=== PATIENT | male | born 1950 | race Caucasian/White ===

== ENCOUNTER 2020-07-20 09:25 | Outpatient (REF) | payer MEDICARE, SELFPAY ==
[2020-07-20 11:19] LABS: MANUAL DIFF FLAG NO
[2020-07-20 11:30] LABS: Basophils Percent Auto 0.7 % (0-2); Eosinophils Absolute Auto 0.3 X10*3/uL (0.0-0.4); Eosinophils Percent Auto 5.5 % (0-4); Hematocrit 38.9 % (42-52); Hemoglobin 12.1 g/dl (14.0-18.0); Imm Gran Abs Auto 0.01 X10*3/uL (0.00-0.03); Imm Gran Pct Auto 0.2 % (0.0-0.4); Lymphocytes Absolute Auto 1.5 X10*3/uL (1.2-4.9); Lymphocytes Percent Auto 26.3 % (20-40); Mean Corpuscular HGB Conc 31.1 g/dl (31.0-36.0); Mean Corpuscular Hemoglobin 29.1 pg (27.0-33.0); Mean Corpuscular Volume 93.5 fL (80-98); Mean Platelet Volume 10.8 fL (9.4-12.4); Monocytes Absolute Auto 0.7 X10*3/uL (0.1-1.2); Monocytes Percent Auto 11.9 % (2-11); Neutrophils Absolute Auto 3.3 X10*3/uL (2.0-8.3); Neutrophils Percent Auto 55.4 % (45-73); Platelet Count 243 X10*3/uL (160-400); Red Blood Count 4.16 X10*6/uL (4.60-5.80); Red Cell Distribution Width 12.7 % (11.0-16.0); White Blood Count 5.9 X10*3/uL (4.8-10.8)
[2020-07-20 11:47] LABS: Alanine Aminotransferase 12 U/L (0-40); Albumin Level 4.1 g/dL (3.5-5.0); Alkaline Phosphatase 85 U/L (39-117); Anion Gap 11 (12-20); Aspartate Amino Transferase 18 U/L (5-37); Bilirubin Total 0.7 mg/dL (0.0-1.0); Blood Urea Nitrogen 12 mg/dL (9-16); Calcium 8.9 mg/dL (8.4-10.2); Carbon Dioxide 27 mmol/L (22-29); Chloride 106 mmol/L (96-108); Cholesterol 184 mg/dL; Estimated Glomerular Filt Rate > 60; Glucose Fasting 90 mg/dL (60-99); HDL Cholesterol 41 mg/dL; LDL Cholesterol Calculated 128 mg/dl; Potassium 4.9 mmol/l (3.3-5.1); Sodium 139 mmol/L (135-145); Total Protein 6.9 g/dL (6.5-8.0); Triglycerides 77 mg/dL
[2020-07-20 12:11] LABS: Prostate Specific Antigen 0.45 ng/mL (<0.05-4.0)
== END 2020-07-20 09:26 | disposition home or self-care (01) ==
LOC: HO.MANLDS 09:25
PROVIDERS: PCP Physician Assistant; Visit Provider Physician Assistant
DX: Z13.6 Encounter for screening for cardiovascular disorders (principal); Z00.00 Encounter for general adult medical examination without abnormal findings
CPT/HCPCS: 36415; 80053; 80061; 84153; 85025

== ENCOUNTER 2022-02-16 11:08 | Outpatient (REF) | payer MEDICARE, SELFPAY ==
[2022-02-16 13:00] LABS: Estimated Average Glucose 117 mg/dL; Hemoglobin A1c % 5.7 %
[2022-02-16 13:11] LABS: Prostate Specific Antigen 0.59 ng/mL (<0.05-4.0)
[2022-02-16 14:28] LABS: Folate > 20.0 ng/mL (> or = 4.0); Vitamin B12 631 pg/mL (200-900)
== END 2022-02-16 11:09 | disposition home or self-care (01) ==
LOC: HO.MANLDS 11:08
PROVIDERS: Visit Provider Physician Assistant
DX: G62.89 Other specified polyneuropathies (principal); N40.0 Benign prostatic hyperplasia without lower urinary tract symptoms; Z12.5 Encounter for screening for malignant neoplasm of prostate
CPT/HCPCS: 36415; 82306; 82607; 82746; 83036; 84153

== ENCOUNTER 2022-04-30 07:52 | Outpatient (REF) | payer MEDICARE, SELFPAY ==
--- NOTE | ~2022-04-30 | US_ITS ---
EXAMINATION: US LOWER EXTREMITY VENOUS (REFLUX EXAM), BILATERAL CLINICAL INDICATION: Insufficiency, venous COMPARISON: None. TECHNIQUE: Color flow triplex imaging and compression Doppler was performed to evaluate both the deep and the superficial systems of the bilateral lower extremities. To evaluate the superficial system, the examination was performed in the upright position. Color-flow Doppler ultrasound and compression ultrasound were utilized. In addition, maneuvers were utilized to demonstrate reflux. FINDINGS: 1. RIGHT DEEP VENOUS DOPPLER ULTRASOUND: Common Femoral Vein: Compressible, normal respiratory variation and augmented flow. Femoral Vein: Compressible, normal color flow and augmentation. Popliteal Vein: Compressible, normal augmentation. Deep Reflux: There is no evidence of reflux in the deep system in either the common femoral vein or the popliteal vein. There is no evidence of a Morataya's cyst. 2. SUPERFICIAL VENOUS DOPPLER ULTRASOUND: GREAT SAPHENOUS VEIN: Saphenofemoral Junction: 0.4 cm; No evidence of reflux. Proximal Thigh: 0.5 cm; No evidence of reflux. Mid Thigh: 0.5 cm; No evidence of reflux. Above Knee: 0.4 cm; No evidence of reflux. At Knee: 0.4 cm; No evidence of reflux. Below Knee: 0.4 cm; No evidence of reflux. Mid Calf: 0.3 cm; 13796 ms Ankle: 0.3 cm; 2456 ms DUPLICATED GREAT SAPHENOUS VEIN: None SMALL SAPHENOUS VEIN: Proximal: 0.3 cm; No evidence of reflux. Distal: 0.2 cm; No evidence of reflux. VEIN OF GIACOMINI: None imaged. PERFORATORS: Multiple small perforators in the mid and proximal calf. VARICOSITIES: None imaged. 1. LEFT DEEP VENOUS DOPPLER ULTRASOUND: Common Femoral Vein: Compressible, normal respiratory variation and augmented flow. Femoral Vein: Compressible, normal color flow and augmentation. Popliteal Vein: Compressible, normal augmentation. Deep Reflux: There is no evidence of reflux in the deep system in either the common femoral vein or the popliteal vein. There is no evidence of a Morataya's cyst. 2. SUPERFICIAL VENOUS DOPPLER ULTRASOUND: GREAT SAPHENOUS VEIN: Saphenofemoral Junction: 0.7 cm; No evidence of reflux. Proximal Thigh: 0.4 cm; No evidence of reflux. Mid Thigh: 0.4 cm; No evidence of reflux. Above Knee: 0.3 cm; No evidence of reflux. At Knee: 0.3 cm; No evidence of reflux. Below Knee: 0.3 cm; No evidence of reflux. Mid Calf: 0.3 cm; No evidence of reflux. Ankle: 0.3 cm; No evidence of reflux. DUPLICATED GREAT SAPHENOUS VEIN: None SMALL SAPHENOUS VEIN: Proximal: 0.3 cm; No evidence of reflux. Distal: 0.1 cm; No evidence of reflux. VEIN OF GIACOMINI: None imaged. PERFORATORS: Multiple small mid thigh and calf perforators. VARICOSITIES: None imaged. US/US venous duplex LE BI IMPRESSION: 1. No DVT. 2. Venous reflux in the great saphenous vein at the right midcalf and ankle. 3. Multiple bilateral small calf and thigh perforating veins.
== END 2022-04-30 07:53 | disposition home or self-care (01) ==
LOC: HO.US 07:52
PROVIDERS: Visit Provider Physician Assistant
DX: I87.2 Venous insufficiency (chronic) (peripheral) (principal); R60.0 Localized edema
CPT/HCPCS: 93970

== ENCOUNTER 2022-06-19 10:25 | Outpatient (REF) | payer MEDICARE, SELFPAY ==
[2022-06-21 05:57] LABS: Lyme Blot 1.71 index
[2022-06-25 11:55] LABS: Lyme Abs Screen POSITIVE
[2022-06-27 19:17] LABS: 18 KD (IgG) Band REACTIVE; 23 KD (IgG) Band REACTIVE; 23 KD (IgM) Band REACTIVE; 28 KD (IgG) Band NON-REACTIVE; 30 KD (IgG) Band NON-REACTIVE; 39 KD (IgM) Band REACTIVE; 39KD (IgG) Band NON-REACTIVE; 41 KD (IgM) Band REACTIVE; 41KD (IgG) Band REACTIVE; 45 KD (IgG) Band NON-REACTIVE; 58 KD (IgG) Band NON-REACTIVE; 66 KD (IgG) Band NON-REACTIVE; 93 KD (IgG) Band NON-REACTIVE; Lyme IgG Blot Interp NEGATIVE (NEGATIVE); Lyme IgM Blot Interp POSITIVE (NEGATIVE)
== END 2022-06-19 10:26 | disposition home or self-care (01) ==
LOC: HO.MANLDS 10:25
PROVIDERS: Visit Provider Physician Assistant
DX: R89.4 Abnormal immunological findings in specimens from other organs, systems and tissues (principal)
CPT/HCPCS: 36415; 86617; 86618

== ENCOUNTER 2023-05-07 11:40 | Outpatient (REF) | payer MEDICARE, SELFPAY ==
[2023-05-07 13:12] LABS: MANUAL DIFF FLAG NO
[2023-05-07 13:36] LABS: Basophils Percent Auto 0.7 % (0-2); Eosinophils Absolute Auto 0.3 X10*3/uL (0.0-0.4); Eosinophils Percent Auto 5.5 % (0-4); Hematocrit 40.3 % (42.0-52.0); Hemoglobin 12.3 g/dl (14.0-18.0); Imm Gran Abs Auto 0.01 X10*3/uL (0.00-0.03); Imm Gran Pct Auto 0.2 % (0.0-0.4); Lymphocytes Absolute Auto 1.5 X10*3/uL (1.2-4.9); Lymphocytes Percent Auto 26.7 % (20-40); Mean Corpuscular HGB Conc 30.5 g/dl (31.0-36.0); Mean Corpuscular Volume 91.6 fL (80.0-98.0); Mean Platelet Volume 10.7 fL (9.4-12.4); Monocytes Absolute Auto 0.6 X10*3/uL (0.1-1.2); Monocytes Percent Auto 10.7 % (2-11); Neutrophils Absolute Auto 3.2 x10*3/uL (2.0-8.3); Neutrophils Percent Auto 56.2 % (45-73); Platelet Count 219 X10*3/uL (160-400); Red Cell Distribution Width 14.8 % (11.0-16.0); White Blood Count 5.6 X10*3/uL (4.8-10.8)
[2023-05-07 14:09] LABS: Alanine Aminotransferase 18 U/L (0-40); Alkaline Phosphatase 91 U/L (39-117); Anion Gap 9 (12-20); Aspartate Amino Transferase 23 U/L (5-37); Bilirubin Total 0.8 mg/dL (0.0-1.0); Blood Urea Nitrogen 10 mg/dL (9-16); Calcium 9.9 mg/dL (8.4-10.2); Carbon Dioxide 28 mmol/L (22-29); Chloride 108 mmol/L (96-108); Cholesterol 106 mg/dL (<200); Estimated Glomerular Filt Rate > 60; Glucose Random 86 mg/dL (60-115); HDL Cholesterol 37 mg/dL (>40); LDL Cholesterol Calculated 59 mg/dL (<100); Potassium 5.1 mmol/L (3.3-5.1); Sodium 140 mmol/L (135-145); Triglycerides 52 mg/dL (<150)
[2023-05-07 14:25] LABS: Prostate Specific Antigen 0.66 ng/mL (<0.05-4.0)
== END 2023-05-07 11:41 | disposition home or self-care (01) ==
LOC: HO.MANLDS 11:40
PROVIDERS: Visit Provider Physician Assistant
DX: Z00.00 Encounter for general adult medical examination without abnormal findings (principal); Z12.5 Encounter for screening for malignant neoplasm of prostate
CPT/HCPCS: 36415; 80053; 80061; 84153; 85025

== ENCOUNTER 2023-05-27 10:51 | Emergency (ER) | payer OTHER, MEDICARE, SELFPAY ==
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
[2023-05-27 11:17] VITALS: BP 145/120; PULSE 72; RESP 18; TEMP 36.7; O2SAT 100; BMI 32.5
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
[2023-05-27] MEDS: Acetaminophen 325 MG TABLET 975 MG PO (12:49)
[2023-05-27] MEDS: Lidocaine 4 % Patch ADH..PATCH 1 PATCH TRANSDERMA (12:52)
== END 2023-05-27 13:42 | disposition home or self-care (01) ==
PROVIDERS: Emergency Provider Student in an Organized Health Care Education/Training Program; PCP Internal Medicine
DX: S06.0X0A Concussion without loss of consciousness, initial encounter (principal); S13.4XXA Sprain of ligaments of cervical spine, initial encounter; R51.9 Headache, unspecified; M54.2 Cervicalgia; R07.89 Other chest pain; X58.XXXA Exposure to other specified factors, initial encounter; Y93.9 Activity, unspecified; Y92.9 Unspecified place or not applicable; Y99.9 Unspecified external cause status
CPT/HCPCS: 70450; 71045; 72125; 99283; 99284

== ENCOUNTER 2024-06-15 09:23 | Outpatient (REF) | payer OTHER, MEDICARE, SELFPAY ==
[2024-06-15 13:14] LABS: MANUAL DIFF FLAG NO
[2024-06-15 13:28] LABS: Basophils Percent Auto 0.7 % (0-2); Eosinophils Absolute Auto 0.3 X10*3/uL (0.0-0.4); Eosinophils Percent Auto 5.4 % (0-4); Hematocrit 36.7 % (42.0-52.0); Hemoglobin 11.5 g/dl (14.0-18.0); Imm Gran Abs Auto 0.02 X10*3/uL (0.00-0.03); Imm Gran Pct Auto 0.3 % (0.0-0.4); Lymphocytes Absolute Auto 1.1 X10*3/uL (1.2-4.9); Lymphocytes Percent Auto 18.2 % (20-40); Mean Corpuscular HGB Conc 31.3 g/dl (31.0-36.0); Mean Corpuscular Hemoglobin 28.8 pg (27.0-33.0); Mean Corpuscular Volume 91.8 fL (80.0-98.0); Mean Platelet Volume 10.8 fL (9.4-12.4); Monocytes Absolute Auto 0.8 X10*3/uL (0.1-1.2); Monocytes Percent Auto 12.6 % (2-11); Neutrophils Absolute Auto 3.8 x10*3/uL (2.0-8.3); Neutrophils Percent Auto 62.8 % (45-73); Platelet Count 222 X10*3/uL (160-400); Red Cell Distribution Width 15.2 % (11.0-16.0); White Blood Count 6.1 X10*3/uL (4.8-10.8)
[2024-06-15 14:02] LABS: Prostate Specific Antigen 0.83 ng/mL (<0.05-4.0)
[2024-06-15 14:08] LABS: Alanine Aminotransferase 27 U/L (0-40); Alkaline Phosphatase 81 U/L (39-117); Anion Gap 10 (12-20); Aspartate Amino Transferase 27 U/L (5-37); Bilirubin Total 0.7 mg/dL (0.0-1.0); Blood Urea Nitrogen 14 mg/dL (9-16); Calcium 9.9 mg/dL (8.4-10.2); Carbon Dioxide 27 mmol/L (22-29); Chloride 108 mmol/L (96-108); Estimated Glomerular Filt Rate > 60; Glucose Random 92 mg/dL (60-115); Potassium 4.7 mmol/L (3.3-5.1); Sodium 140 mmol/L (135-145); Total Protein 6.9 g/dL (6.5-8.0)
== END 2024-06-15 09:24 | disposition home or self-care (01) ==
LOC: HO.MANLDS 09:23
PROVIDERS: Visit Provider Internal Medicine
DX: Z12.5 Encounter for screening for malignant neoplasm of prostate (principal); Z00.00 Encounter for general adult medical examination without abnormal findings
CPT/HCPCS: 36415; 80053; 84153; 85025

== ENCOUNTER 2024-07-14 15:08 | Outpatient (REF) | payer OTHER, MEDICARE, SELFPAY ==
[2024-07-14 17:53] LABS: MANUAL DIFF FLAG NO
[2024-07-14 18:01] LABS: Basophils Percent Auto 0.6 % (0-2); Eosinophils Absolute Auto 0.3 X10*3/uL (0.0-0.4); Hemoglobin 10.4 g/dl (14.0-18.0); Imm Gran Abs Auto 0.02 X10*3/uL (0.00-0.03); Imm Gran Pct Auto 0.3 % (0.0-0.4); Lymphocytes Absolute Auto 1.4 X10*3/uL (1.2-4.9); Lymphocytes Percent Auto 22.3 % (20-40); Mean Corpuscular HGB Conc 31.5 g/dl (31.0-36.0); Mean Corpuscular Hemoglobin 28.9 pg (27.0-33.0); Mean Corpuscular Volume 91.7 fL (80.0-98.0); Mean Platelet Volume 11.2 fL (9.4-12.4); Monocytes Absolute Auto 0.7 X10*3/uL (0.1-1.2); Monocytes Percent Auto 11.1 % (2-11); Neutrophils Absolute Auto 3.9 x10*3/uL (2.0-8.3); Neutrophils Percent Auto 60.7 % (45-73); Platelet Count 204 X10*3/uL (160-400); Red Cell Distribution Width 14.7 % (11.0-16.0); White Blood Count 6.4 X10*3/uL (4.8-10.8)
[2024-07-14 18:15] LABS: Alanine Aminotransferase 15 U/L (0-40); Albumin Level 3.8 g/dL (3.5-5.0); Alkaline Phosphatase 75 U/L (39-117); Anion Gap 12 (12-20); Aspartate Amino Transferase 25 U/L (5-37); Bilirubin Total 0.6 mg/dL (0.0-1.0); Blood Urea Nitrogen 16 mg/dL (9-16); C Reactive Protein < 0.04 mg/dL (< or = 0.50); Calcium 9.8 mg/dL (8.4-10.2); Carbon Dioxide 23 mmol/L (22-29); Chloride 110 mmol/L (96-108); Estimated Glomerular Filt Rate 55; Glucose Random 94 mg/dL (60-115); Iron 44 mcg/dL (45-160); Magnesium 1.8 mg/dL (1.6-2.6); Percent Iron Saturation 13 % (15-50); Potassium 4.4 mmol/L (3.3-5.1); Sodium 141 mmol/L (135-145); Total Iron Binding Capacity 331 mcg/dL (228-428); Total Protein 6.4 g/dL (6.5-8.0); Unsaturated Iron Binding 287 ug/dL
[2024-07-14 18:58] LABS: Vitamin B12 886 pg/mL (200-900)
[2024-07-14 20:17] LABS: Erythrocyte Sedimentation Rate 16 MM/HR (0-15)
[2024-07-19 06:03] LABS: VITAMIN D (1,25 OH) D3 27 pg/mL; Vit D (1,25-Dihydroxy) Total 27 pg/mL (18-72); Vitamin D (1,25 OH) D2 <8 pg/mL
== END 2024-07-14 15:09 | disposition home or self-care (01) ==
LOC: HO.MANLDS 15:08
PROVIDERS: Visit Provider Physician Assistant
DX: R25.2 Cramp and spasm (principal)
CPT/HCPCS: 36415; 80053; 82607; 82652; 83540; 83735; 85025; 85652; 86140

== ENCOUNTER 2024-08-12 11:45 | Outpatient (REF) | payer OTHER, MEDICARE, SELFPAY ==
[2024-08-12 13:12] LABS: MANUAL DIFF FLAG NO
[2024-08-12 13:31] LABS: Basophils Percent Auto 0.8 % (0-2); Eosinophils Absolute Auto 0.3 X10*3/uL (0.0-0.4); Eosinophils Percent Auto 5.7 % (0-4); Hematocrit 38.3 % (42.0-52.0); Imm Gran Abs Auto 0.01 X10*3/uL (0.00-0.03); Imm Gran Pct Auto 0.2 % (0.0-0.4); Lymphocytes Absolute Auto 1.1 X10*3/uL (1.2-4.9); Lymphocytes Percent Auto 21.9 % (20-40); Mean Corpuscular HGB Conc 31.3 g/dl (31.0-36.0); Mean Corpuscular Hemoglobin 29.9 pg (27.0-33.0); Mean Corpuscular Volume 95.3 fL (80.0-98.0); Mean Platelet Volume 10.5 fL (9.4-12.4); Monocytes Absolute Auto 0.5 X10*3/uL (0.1-1.2); Monocytes Percent Auto 10.5 % (2-11); Neutrophils Absolute Auto 3.1 x10*3/uL (2.0-8.3); Neutrophils Percent Auto 60.9 % (45-73); Platelet Count 223 X10*3/uL (160-400); Red Blood Count 4.02 X10*6/uL (4.60-5.80); Red Cell Distribution Width 15.2 % (11.0-16.0); White Blood Count 5.1 X10*3/uL (4.8-10.8)
[2024-08-12 13:41] LABS: Estimated Average Glucose 103 mg/dL; Hemoglobin A1c % 5.2 % (<6.0); Total Hemoglobin (HGBA1C) 3096.8272 umol/L
[2024-08-12 13:47] LABS: Alanine Aminotransferase 18 U/L (0-40); Albumin Level 3.9 g/dL (3.5-5.0); Alkaline Phosphatase 80 U/L (39-117); Anion Gap 14 (12-20); Aspartate Amino Transferase 27 U/L (5-37); Bilirubin Total 1.1 mg/dL (0.0-1.0); Blood Urea Nitrogen 10 mg/dL (9-16); Calcium 9.3 mg/dL (8.4-10.2); Carbon Dioxide 23 mmol/L (22-29); Chloride 108 mmol/L (96-108); Cholesterol 91 mg/dL (<200); Estimated Glomerular Filt Rate 56; Glucose Random 98 mg/dL (60-115); HDL Cholesterol 29 mg/dL (>40); LDL Cholesterol Calculated 45 mg/dL (<100); Potassium 4.3 mmol/L (3.3-5.1); Sodium 141 mmol/L (135-145); Total Protein 6.5 g/dL (6.5-8.0); Triglycerides 85 mg/dL (<150)
[2024-08-12 13:54] LABS: Prostate Specific Antigen 0.59 ng/mL (<0.05-4.0)
== END 2024-08-12 11:46 | disposition home or self-care (01) ==
LOC: HO.MANLDS 11:45
PROVIDERS: Visit Provider Physician Assistant
DX: Z00.00 Encounter for general adult medical examination without abnormal findings (principal); Z12.5 Encounter for screening for malignant neoplasm of prostate; Z13.1 Encounter for screening for diabetes mellitus
CPT/HCPCS: 36415; 80053; 80061; 83036; 84153; 85025

== ENCOUNTER 2025-01-26 14:02 | Outpatient (REF) | payer OTHER, MEDICARE, SELFPAY ==
--- OUTSIDE RECORDS SUMMARY | 2025-01-26 15:13 | XMS_ITS | Data Portability ---
Author Organization [facility] Home Service Address [address] [place] [address] Care Team Providers Care Corporate Licensed Broker Name Role Phone CARMEN GARCIA Sales Recruiting Coordinator Assessment No assessment recorded. Plan of Treatment Reminders Order Date Submit Date Provider Last Modified By Organization Details Last Modified Time Details Appointments FOLLOW UP 15 2024 09:15A COLEMAN GOODWIN Not available Not available Not available MEDICARE ANNUAL WELLNESS 2024 09:00A COLEMAN GOODWIN Not available Not available Not available Lab CMP, serum or plasma 2024 025 [facility], [address] [place] [address], [id number], 11/10/2024 10:41:37 iron + TIBC + ferritin, serum 2024 025 [facility], [address] [place] [address], [id number], 11/10/2024 10:41:37 CBC w/ auto diff 2024 025 [facility], [address] [place] [address], [id number], 11/10/2024 10:41:37 iron + TIBC + ferritin, serum 2024 025 [facility], [address] [place] [address], [id number], 10/06/2024 11:45:43 CBC w/ auto diff 2024 025 [facility], [address] [place] [address], [id number], 10/06/2024 11:45:43 iron + TIBC + ferritin, serum 2023 024 [facility], [address] [place] [address], [id number], 10/01/2024 19:29:55 CBC w/ auto diff 2023 024 [facility], [address] [place] [address], [id number], 10/01/2024 16:36:39 magnesium , serum or plasma 2023 024 [facility], [address] [place] [address], [id number], 07/14/2024 15:17:15 CMP, serum or plasma 2023 024 [facility], [address] [place] [address], [id number], 07/14/2024 15:17:15 vitamin D, 25-hydrox y, total, serum 2023 024 [facility], [address] [place] [address], [id number], 07/20/2024 13:38:44 vitamin B12 + folate, serum or blood 2023 024 [facility], [address] [place] [address], [id number], 07/14/2024 15:17:15 CBC w/ auto diff 2023 024 [facility], [address] [place] [address], [id number], 07/14/2024 15:17:15 iron + TIBC + ferritin, serum 2023 024 [facility], [address] [place] [address], [id number], 11/06/2024 13:42:09 ESR (erythroc yte sedimenta tion rate), blood 2023 024 [facility], [address] [place] [address], [id number], 07/14/2024 15:17:15 C-reactiv e protein, quantitat mague, serum or plasma 2023 024 [facility], [address] [place] [address], [id number], 07/14/2024 15:17:15 PSA, serum or plasma 2023 024 [facility], [address] [place] [address], 71632, 06/15/2024 09:11:05 CBC w/ auto diff 2023 024 [facility], [address] [place] [address], [id number], 06/15/2024 09:24:06 CMP, serum or plasma 2023 024 [facility], [address] [place] [address], [id number], 06/16/2024 11:34:20 Referral physical therapist referral 2024 025 [facility], [address] [place] [address], [id number], 10/07/2024 08:09:15 Procedures None recorded. Surgeries None recorded. Imaging None recorded. Medication Orders ketoconaz ole 2 % topical cream 2024 025 [facility][id number], [address] [place], [address], 11/10/2024 10:40:13 Patient TargetsNo targets recorded. Patient InstructionsNo instructions recorded. Reason for Referral Physical Therapist Referral for Abnormal gait Referring Physician: Kanchan Chauhan, Internal Medicine, Encounter Date: 10/06/2024 Results Created Date Observation Date Name Description Value Unit Range Abnormal Flag Note LastModifiedBy Organization Detail LastModifiedTime Result Notes None recorded. Problems Name Problem SNOMED Code Status Onset Date Resolution Date Notes Provider Name and Address Organization Details Recorded Time Glaucoma 96365611 Active 2019 Not Available [facility] 13:48:53 M? ? ?ni? ? ?re's disease 74523894 Active 2019 Not Available [facility] 13:48:53 Adenomat ous polyp of colon 997799338 Active 2019 Not Available [facility] 13:48:53 Psoriasi s 1963705 Active 2019 Not Available [facility] 13:48:53 Osteoart hritis 420095752 Active 2019 Not Available [facility] 13:48:53 Varicoce le 90405104 Active 2019 Left testes in his 20's Not Available [facility] 13:48:53 Depressi ve disorder 24845712 Active 2019 Not Available [facility] 13:48:53 [facility] hyperten nara 08192336 Active 2019 Not Available [facility] 13:48:53 Hemorrho ids 52189145 Active 2019 Not Available [facility] 13:48:53 Chronic kidney disease 696941668 Completed 201908/01/2020 Stage 3 , onset 06/12/20 19 COLEMAN MONTES [address] [place], [address], [facility] 0 11:27:04 Disorder of prostate 12640000 Active 2019 Not Available [facility] 1 13:48:53 Mass of neck 683914513 Active 2019 Not Available [facility] 13:48:53 Venous insuffic iency of leg 013253071 Active 2021 COLEMAN MONTES [address] [place], [address], [facility] 2 10:54:09 Neuropat hy 980347518 Active 2021 COLEMAN MONTES [address] [place], [address], [facility] 2 10:56:15 Varicose veins of lower extremit y 16973366 Active 2021 COLEMAN MONTES [address] [place], [address], [facility] 2 10:59:54 Lumbar radiculo anna 145410172 Active 2021 COLEMAN MONTES [address] [place], [address], [facility] 2 11:01:11 Benign prostati c hyperpla romario 939389074 Active 2021 COLEMAN MONTES [address] [place], [address], [facility] 2 11:02:46 Edema of lower extremit y 093254331 Active 2021 COLEMAN MONTES [address] [place], [address], [facility] 2 17:09:28 Impacted cerumen of bilatera l ears 57049348656 79777 Active 2021 COLEMAN MONTES [address] [place], [address], [facility] 2 16:53:48 Hearing loss 62648309 Active 2021 COLEMAN MONTES [address] [place], [address], [facility] 2 14:21:39 Lyme detected by immunobl ot 730562359 Active 2021 COLEMAN MONTES [address] [place] [address], , [facility] 2 10:15:51 Abnormal gait 04697567 Active 2021 COLEMAN MONTES [address] [place] [address], [address], [facility] 2 10:26:01 Lyme disease 80754693 Active 2021 COLEMAN MONTES [address] [place] [address], , [facility] 2 12:51:03 Nocturia 083276992 Active 2022 COLEMAN MONTES [address] [place] [address], , [facility] 3 10:30:57 Torticol lis 04429177 Active 2022 COLEMAN MONTES [address] [place] [address], , [facility] 3 14:55:26 Pain of left hip joint 58380796720 9100 Active 2023 COLEMAN MONTES [address] [place] [address], , [facility] 4 10:44:27 Increase d frequenc y of urinatio n 663366570 Active 2023 COELMAN MONTES [address] [place] [address], , [facility] 4 10:45:32 Bilatera l hearing loss 76356076 Active 2023 COLEMAN MONTES [address] [place] [address], , [facility] 4 10:49:27 Polyuria 32921155 Active 2023 COLEMAN MONTES [address] [place], [address], [facility] 4 16:24:58 Carotid artery stenosis 54953478 Active 2023 COLEMAN MONTES [address] [place], [address], [facility] 4 09:17:06 Spasm 35663244 Active 2023 COLEMAN MONTES [address] [place], [address], [facility] 4 15:01:01 Iron deficien cy anemia 23598787 Active 2023 COLEMAN MONTES [address] [place], [address], [facility] 4 11:00:15 Onycholy sis due to fungal infectio n of nail 119259606 Active 2024 COLEMAN MONTES [address] [place], [address], [facility] 5 10:39:39 Problem Notes None recorded. Procedures Surgical History Date Name Laterality Status Provider Name and Address Organization Details Recorded Time 04/09/20 22 Cerumen Removal completed COLEMAN MONTES [address] [place], [address], [facility] 04/09/2022 16:53:36 03/08/20 16 Colonoscopy completed Princesselian Frye [facility] 03/30/2020 15:31:22 08/16/20 15 Cataract Surgery completed Princess Frye [facility] 03/30/2020 15:30:26 05/05/20 15 Carpal tunnel surgery completed Princesselian Frye [facility] 03/30/2020 15:31:50 04/01/20 15 Carpal tunnel surgery completed Princesselian Frye [facility] 03/30/2020 15:31:58 12/27/19 11 Colonoscopy completed [facility] 03/30/2020 15:32:19 10/04/19 10 Colonoscopy completed [facility] 03/30/2020 15:32:29 09/16/19 04 total replacement of hip completed [facility] 03/30/2020 15:42:23 Imaging Results None recorded. Procedure Notes None recorded. Medical Equipment None Reported. Allergies No known drug allergies Medications Name Sig Start Date Stop Date Status Note LastModified by Organization Details LastModified Time latanoprost 0.005 % eye drops INSTILL 1 DROP INTO BOTH EYES AT BEDTIME active Not Available Not Available No t Available atorvastati n 40 mg tablet TAKE 1 TABLET BY MOUTH EVERY DAY active Not Available Not Available No t Available carvedilol 25 mg tablet TAKE 1 TABLET BY MOUTH TWICE A DAY 06/19 completed Not Available Not Available Not Available magnesium 500 mg tablet Take 1 tablet every day by oral route. active Not Available Not Available No t Available venlafaxine ER 37.5 mg capsule,ext ended release 24 hr TAKE 1 CAPSULE EVERY DAY BY ORAL ROUTE IN THE MORNING WITH MEAL. active Not Available Not Available No t Available carvedilol 6.25 mg tablet TAKE 1 TABLET BY MOUTH TWICE A DAY WITH MEALS 12/05 completed Not Available Not Available Not Available prednisone 10 mg tablet PLEASE SEE ATTACHED FOR DETAILED DIRECTION S 04/10 completed Not Available Not Available Not Available venlafaxine ER 75 mg capsule,ext ended release 24 hr TAKE 1 CAPSULE EVERY DAY BY ORAL ROUTE IN THE MORNING FOR 90 DAYS, FOR ANXIETY DRVING & HEADACHE. active Not Available Not Available No t Available carvedilol 12.5 mg tablet TAKE 1 TABLET BY MOUTH TWICE A DAY WITH FOOD active Not Available Not Available No t Available diltiazem CD 240 mg capsule,ext ended release 24 hr 04/11 completed Not Available Not Available Not Available meloxicam 15 mg tablet TAKE 1 TABLET EVERY DAY BY ORAL ROUTE WITH MEALS FOR 30 DAYS. active Not Available Not Available No t Available isosorbide mononitrate ER 30 mg tablet,exte nded release 24 hr TAKE 1 TABLET BY MOUTH EVERY DAY active Not Available Not Available No t Available chlorthalid one 25 mg tablet 04/11 completed Not Available Not Available Not Available amlodipine 5 mg tablet Take 1 tablet every day by oral route. 12/09 completed Not Available Not Available Not Available tramadol 50 mg tablet TAKE 1 TABLET BY MOUTH EVERY 6 HOURS NEEDED FOR 7 DAYS 06/15 completed Not Available Not Available Not Available triamcinolo ne acetonide 0.1 % topical cream APPLY THIN COAT TO AFFECTED AREA TWICE A DAY active Not Available Not Available No t Available spironolact one 25 mg tablet 11/17 completed Not Available Not Available Not Available lorazepam 0.5 mg tablet TAKE 1 TABLET BY MOUTH TWICE A DAY NEEDED FOR 7 DAYS 04/10 completed Not Available Not Available Not Available tamsulosin 0.4 mg capsule TAKE 1 CAPSULE BY MOUTH EVERY DAY 12/05 completed Not Available Not Available Not Available baclofen 10 mg tablet TAKE 1 TABLET BY MOUTH THREE TIMES A DAY FOR 14 DAYS 04/10 completed Not Available Not Available Not Available amlodipine 10 mg tablet Take 1 tablet every day by oral route for 90 days. 10/06 completed Not Available Not Available Not Available lisinopril 10 mg tablet TAKE 1 TABLET BY MOUTH EVERY DAY active Not Available Not Available No t Available oxybutynin chloride ER 5 mg tablet,exte nded release 24 hr TAKE 1 TABLET BY MOUTH EVERY DAY active Not Available Not Available No t Available hydrochloro thiazide 25 mg tablet TAKE 1 TABLET BY MOUTH EVERY DAY 06/19 completed Not Available Not Available Not Available mupirocin 2 % topical ointment APPLY A SMALL AMOUNT TO THE AFFECTED AREA BY TOPICAL ROUTE 3 TIMES PER DAY 04/09 completed Not Available Not Available Not Available ketoconazol e 2 % topical cream APPLY TO AFFECTED AREA EVERY DAY active Not Available Not Available No t Available lisinopril 40 mg tablet TAKE 1 TABLET BY MOUTH EVERY DAY active Not Available Not Available No t Available doxycycline hyclate 100 mg tablet TAKE 1 TABLET BY MOUTH TWICE A DAY 12/05 completed Not Available Not Available Not Available naproxen 500 mg tablet TAKE 1 TABLET BY MOUTH 2 TIMES A DAY 04/10 completed Not Available Not Available Not Available Vitamin B12 500 mcg tablet Take 1 tablet every day by oral route. active Not Available Not Available No t Available escitalopra m 10 mg tablet TAKE 1 TABLET BY MOUTH EVERY DAY active Not Available Not Available No t Available alfuzosin ER 10 mg tablet,exte nded release 24 hr TAKE 1 TABLET BY MOUTH EVERY DAY FOR 30 DAYS 04/10 completed Not Available Not Available Not Available Vitamin D3 2000 IU daily active Not Available Not Available No t Available [employer] At-Home COVID-19 Test kit USE DIRECTED 06/19 completed Not Available Not Available Not Available Vitals Date Recorded Body height Body mass index (BMI) Body weight Heart rate Oxygen saturation Oxygen saturation in Arterial blood by Pulse oximetry Systolic blood pressure Diastolic blood pressure Provider Name and Address Organization Details Last Updated DateTime 4 172.72 cm 32.7 kg/m2 61366.7 2 g 67 /min 89 % 89 % 142 mm[Hg] 86 mm[Hg] Allegra Asher [facility] 4 08:58:30 Date Recorded Body height Body mass index (BMI) Body weight Heart rate Oxygen saturation Oxygen saturation in Arterial blood by Pulse oximetry Systolic blood pressure Diastolic blood pressure Provider Name and Address Organization Details Last Updated DateTime 4 172.72 cm 33.3 kg/m2 67768.7 3 g 105 /min 95 % 95 % 92 mm[Hg] 48 mm[Hg] Allegra Asher [facility] 4 14:51:02 Date Recorded Body height Body mass index (BMI) Body weight Heart rate Oxygen saturation Oxygen saturation in Arterial blood by Pulse oximetry Systolic blood pressure Diastolic blood pressure Provider Name and Address Organization Details Last Updated DateTime 4 172.72 cm 33.3 kg/m2 82169.7 3 g 62 /min 95 % 95 % 158 mm[Hg] 72 mm[Hg] Mei Barrett [facility] 4 10:50:34 Date Recorded Body height Body mass index (BMI) Body weight Heart rate Oxygen saturation Oxygen saturation in Arterial blood by Pulse oximetry Systolic blood pressure Diastolic blood pressure Provider Name and Address Organization Details Last Updated DateTime 5 172.72 cm 33.4 kg/m2 68560.1 7 g 70 /min 98 % 98 % 132 mm[Hg] 70 mm[Hg] Allegra Asher [facility] 5 11:35:05 Date Recorded Body height Body mass index (BMI) Body weight Systolic blood pressure Diastolic blood pressure Provider Name and Address Organization Details Last Updated DateTime 11/10/2024 172.72 cm 32.6 kg/m2 34235.92 g 136 mm[Hg] 82 mm[Hg] Allegra Asher [facility] 10:32:25 Social History Question Answer Notes LastModified by [employer] Details LastModified Time Tobacco Smoking Status Former Smoker Mei jones [facility] 05/14/2023 10:06:14 What Is Your Level Of Caffeine Consumption? Moderate Information not available 04/11/2020 What Was The Date Of Your Most Recent Tobacco Screening? 11/10/2024 [email or web address] Information not available 11/10/2024 How Much Tobacco Do You Smoke? No [email or web address] Information not available 05/14/2023 Sex: Unknown Functional Status Question Answer Note LastModified by [employer] Details LastModified Time Do you or have you ever used any other forms of tobacco or nicotine? No [email or web address] Information not available 04/09/2022 What is your level of alcohol consumption? None Information not available 04/11/2020 What is your exercise level? Occasional Information not available 04/11/2020 Mental Status None recorded. Family History Relationship Description Onset Age of this Age Resolved Age Notes LastModified by Organization Details LastModified Time Father Malignant neoplasm of prostate [email or web address] Not available 2019 15:28:58 Father Hypertensive disorder [email or web address] Not available 2019 11:09:39 Father Alcoholism [email or web address] Not availab le 04/11/2020 11:10:08 Mother Coronary arterioscler osis [email or web address] Not available 2019 15:29:13 Mother Hypertensive disorder [email or web address] Not available 2019 11:09:39 Mother Alcoholism [email or web address] Not availab le 04/11/2020 11:10:08 Brother Chronic back pain sbucko Not available 2019 15:29:48 Brother Hypertensive disorder [email or web address] Not available 2019 11:09:39 Maternal Grandmother Arthritis jvanasse Not available 11:08:50 Maternal Grandmother Hypertensive disorder jvanasse Not available 2019 11:09:39 Maternal Grandfather Hypertensive disorder jvanasse Not available 2019 11:09:39 Paternal Grandfather Hypertensive disorder jvanasse Not available 2019 11:09:39 Paternal Grandmother Hypertensive disorder jvanasse Not available 2019 11:09:39 Paternal Grandmother Alcoholism jvanasse Not available 11:10:08 Medical History No medical history recorded. Immunizations Vaccine Type Date Status Note Provider Nam e and Address Organization Details Recorded Time COVID-19, mRNA, LNP-S, PF, 30 mcg/0.3 mL dose 08/25/20 21 completed Maverick Hearn DO [address] [place] [address], [address], [facility] 08/26/2021 14:04:52 Td (adult) 01/31/20 18 completed Princess jones [facility] 03/30/2020 15:37:56 Tdap 07/02/20 08 completed Princess jones [facility] 03/30/2020 15:38:15 pneumococcal polysaccharide PPV23 06/22/20 16 completed Princess jones [facility] 03/30/2020 15:38:47 Pneumococcal conjugate PCV 13 03/28/20 15 completed Princess jones [facility] 03/30/2020 15:39:07 zoster, unspecified formulation 01/05/20 11 completed Princess jones [facility] 03/30/2020 15:39:25 COVID-19, mRNA, LNP-S, PF, 30 mcg/0.3 mL dose 11/27/19 21 completed Charlotte jones [facility] 03/01/2021 10:11:48 COVID-19, mRNA, LNP-S, PF, 30 mcg/0.3 mL dose 12/18/19 21 completed Charlotte jones [facility] 03/01/2021 10:11:57 Past Encounters Encounter ID Performer Location Encounter Start Date Encounter Closed Date Diagnosis/Indication Diagnosis SNOMED-CT Code Diagnosis ICD10 Code Diagnosis Note [id number] Maverick Hearn DO [facility] [address] [facility],[place] [address] 04/11/2020 10:18:04 04/11/2020 11:00:08 Psoriasis 3333366 L40.9 no acute flare ups recently does well with the triamcinol one cream Essential hypertension 76681640 I10 BP is elevated today at 150/90 patient does report he is nervous will recheck at next appt if still elevated will make some medication changes Osteoarthritis 978775600 M19.90 stable doing well knows what he can do Chronic ki dney disease 005288056 N18.9 the pt old doctor was concerned sent to see a kidney specialist who said his kidney function was fine for a man his age not otherwise concerned about failing kidneys Depressive disorder 3979 2760 F32.9 stable patient states he has not had an episode in awhile not concerned about it and does not want medication Tobacco de pendence syndrome 06053000 F17.200 patient is a 49 year, 1 pack per day smoker does want to quit but not sure about using medication will think about it and let me know [id number] Maverick Hearn DO [facility] [address] [facility],[place] [address] 07/20/2020 08:58:33 07/20/2020 09:33:16 Essential hypertension 41176374 I10 BP is elevated today at 150/80 will have him take his BP at home and see if it's elevated at home as well and have call in readings Adult heal th examination 575953688 Z00.00 will have him do BW and BP readings Screening for cardiovascular system disease 073901565 Z13.6 BW needed [id number] Maverick Hearn DO [facility] [address] [facility],[address] [address] 08/01/2020 11:14:02 08/01/2020 16:23:18 Essential hypertension 13424106 I10 BP is elevated at home will try both arms with machine, if reading high on both arms (as was higher than our office reading) will invest in new machine Depressive disorder 1990 8427 F32.9 stable patient states he has not had an episode in awhile not concerned about it and does not want medication [id number] Maverick Hearn DO [facility] [address] [facility],[place] [address] 08/31/2020 08:15:39 08/31/2020 10:56:42 Essential hypertension 95956701 I10 will increase the amlodipine as his BP is still high at home and fu in two months Depressive disorder 9232 9007 F32.9 stable patient states he has not had an episode in awhile not concerned about it and does not want medication [id number] Maverick Hearn [facility] [address] [facility],[place] [address] 11/08/2020 10:08:44 11/08/2020 12:06:38 Essential hypertension 04778303 I10 BP much better after med adjustment patient will continue with current medication s at this time [id number] Maverick Hearn [facility] [address] [facility],[place] [address] 11/16/2020 13:57:53 11/16/2020 15:06:04 Edema of lower extremity 059579834 R60.0 will fu with US to r/o HF as a cause of the swelling Adverse re action to drug 81774621 T50.905A the patient is having increased LE edema due to amlodipine increase will bring it back down to 5 mg which he tolerated well will not fu Essential hypertension 44755395 I10 [place] to [place] [id number] Maverick Hearn [facility] [address] [place] [address],[place] [address] 03/01/2021 10:57:29 03/01/2021 16:15:53 Sun-damaged skin on face 052423400 L59.9 will start with treatment of possible sun poisoning outbreakan d fu with derm consult Lesion of skin of face 7172055679 06 L98.9 needs derm eval for possible skin cancer [id number] Maverick Hearn [facility] [address] [facility],[place] [address] 09/04/2021 12:15:09 09/04/2021 15:40:38 Essential hypertension 79865721 I10 will need to reassess medication changes at fu Subclavian steal syndrome 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 G45.8 [id number] Maverick Hearn [facility] [address] [facility],[place] [address] 11/17/2021 15:54:07 11/20/2021 14:42:52 Low back pain 930972932 M54.59 will fu with XR of the low backmost likely the cause of his pain History of total replacement of left hip joint 1872306119 179619 Z96.642 hx of bilateral hip joint replacemen twill check to see if it correctly in placemost likely back [id number] Maverick Hearn [facility] [address] [facility],[place] [address] 02/16/2022 10:25:16 02/16/2022 16:26:52 Venous insufficiency of leg 955092861 I87.2 fu after US results are in Neuropathy 702116618 G62 .89 full work up for possible causes outside of lumbar rad and nerve impingemen t Varicose v eins of lower extremity 48929122 I83.893 waiting on US results Lumbar radiculopathy 128 961546 M54.16 fu with ortho Benign pro static hyperplasia 476500485 N40.0 waitingon PSA [id number] Maverick Hearn [facility] [address] [facility],[place] [address] 04/09/2022 14:23:49 04/09/2022 15:58:14 Tobacco user [id number] Z72.0 still smoking Impacted c erumen of bilateral ears [id number] 175836 H61.23 fu in a week after using debrox [id number] Maverick Hearn [facility] [address] [facility],[place] [address] 06/19/2022 09:58:48 06/19/2022 10:35:38 Lyme detected by immunoblot [id number] R89.4 will recheck lyme panel given no symptoms and past hx of lymeif still positive will order a course of doxycyclin e for the patient Abnormal gait 16411264 R 26.89 per note [id number] Maverick Hearn DO [facility] [address] [facility],[place] [address] 12/05/2022 11:27:01 12/05/2022 15:57:52 Essential hypertension 76331877 I10 doing great Depressive disorder 3548 9007 F32.9 we will give him lorazepam for the panic episodes and we will try escitalopr am for the day to day mood rechk Abdominal aortic aneurysm screening 979950384 Z13.6 Advance care planning 71 6347824 Z71.89 [facility] [id number] Maverick Hearn [facility] [address] [facility], [place] [address] 01/18/2023 10:07:25 01/21/2023 08:46:03 Edema of lower extremity 340137098 R60.0 stable Benign pro static hyperplasia 601393334 N40.0 stable Depressive disorder 3548 9007 F32.9 stable Essential hypertension 31671434 I10 stable Adult heal th examination 446294142 Z00.00 will have him do BW and BP readings [id number] Maverick Hearn [facility] [address] [facility], [place] [address] 05/14/2023 09:54:42 05/14/2023 10:37:24 Active or passive immunization 280931928 Z23 up to date Adult heal th examination 790081267 Z00.00 will have him do BW and BP readings Benign pro static hyperplasia 640902258 N40.0 stable Depressive disorder 3548 9007 F32.9 stable Essential hypertension 96740102 I10 stable Osteoarthritis 343279277 M15.0 stable doing well knows what he can do Nocturia 845761001 R35.1 will trial alt for the urination at night [id number] Maverick Hearn [facility] [address] [facility], [place] [address] 05/21/2023 14:09:46 05/22/2023 08:52:07 Torticollis 46990908 M43.6 start on prednisone and baclofen [id number] Maverick Hearn [facility] [address] [facility], [place] [address] 04/10/2024 10:26:35 04/13/2024 18:43:35 Nocturia 013329323 R35.1 will trial alt for the urination at night Pain of le ft hip joint 2341212617 59970 M25.552 will set up with XR's to determine cause of hip, back painmost likely arthritis Increased frequency of urination 609648078 R35.0 will set up with lab work Sun-damage d skin on face 556944222 L59.9 will start with treatment of possible sun poisoning caraan bhavana fu with derm consult Bilateral hearing loss 46591620 H90.3 needs referral [id number] Maverick Hearn [facility] [address] [facility], [place] [address] 06/15/2024 08:53:50 06/15/2024 09:18:45 Active or passive immunization 803466214 Z23 up to date Adult heal th examination 654099672 Z00.00 stableneed s recheck BW his fingers are cold, that's why the pulse ox was off needs CMP checked Abnormal gait 05514404 R 26.89 per note Depression screening 171 604250 Z13.31 negative Screening for malignant neoplasm of prostate 652651301 Z12.5 routine screening Carotid ar radhika stenosis 92842465 I65.29 has fu with cardiowill call if anything changes [id number] Maverick Hearn [facility] [address] [facility], [place] [address] 07/14/2024 14:38:27 07/14/2024 15:08:39 [facility] 33084364 R25.2 recommende d [id number] Maverick Hearn [facility] [address] [facility], [place] [address] 08/17/2024 10:43:16 08/17/2024 11:06:12 Iron deficiency anemia 66924807 D50.9 going up which is greatmendy continue the iron tabsfu with recheck in one month Adult heal th examination 556149968 Z00.00 stableneed s recheck BW his fingers are cold, that's why the pulse ox was off needs CMP checked [id number] Maverick Hearn DO [facility] [address] [facility] [facility] [address],[place] [address] 10/06/2024 11:04:54 10/06/2024 12:13:43 Iron deficiency anemia 18490173 D50.8 will set up with iron panel screening in a moshold supplement for now to see if he needs it fpc Essential hypertension 13867952 I10 stable Abnormal gait 23846685 R 26.89 agreed to PT assessment for patient [id number] Maverick Hearn [facility] [address] [facility] [address],[place] [address] 11/10/2024 10:25:30 11/10/2024 11:34:57 Iron deficiency anemia 98418006 D50.8 will set up with iron panel screening in a moshold supplement for now to see if he needs it fpc Essential hypertension 74251385 I10 stable Onycholysi s due to fungal infection of nail 705454648 L60.1 will start on topical for fingers Health Concerns Section Related Observation LastModified by Organization Detai ls LastModified Time None Recorded Concern Status LastModified by Organization Details LastModified Time None Recorded Advance Directives Directive None Recorded Payers Encounter Date Sequence Insurance Name Policy Number Policy Johnson Covered Member ID Johnson Member ID Guarantor Name 06/15/2024 2 [place] [id number] Nickolas Patel Jr [id number] Nickolas Patel 06/15/2024 1 [place] [employer] Nickolas Patel Jr [id number] Nickolas Patel 07/14/2024 2 [place] [id number] Nickolas Patel Jr [id number] Nickolas Patel 07/14/2024 1 [place] [employer] Nickolas Patel Jr [id number] Nickolas Patel 08/17/2024 2 [place] [id number] Nickolas Patel Jr [id number] Nickolas Patel 08/17/2024 1 [place] [employer] Nickolas Patel Jr [id number] Nickolas Patel 10/06/2024 1 [place] [facility] Nickolas Patel Jr [id number] Nickolas Patel 10/06/2024 2 [place] [facility] Nickolas Patel [id number] Nickolas Patel 11/10/2024 1 [place] [facility] Nickolas Patel Jr [id number] Nickolas Patel 11/10/2024 2 [place] [facility] Nickolas Patel [id number] Nickolas Patel Notes Date Note Type Note Provider Name a dc Address Organization Details Recorded Time 4 text/html Annual WellnessReported bypatient.Diet and Nutrition:healthy diet; discussed vitamin and supplement use; discussed portion control; discussed maintaining calcium balance; discussed diet improvement Fracture Risk:no history of fractures; no recent explained fracture; no sudden unexplained fractures; no previous musculoskeletal injuries Physical Activity:recent increase in physical activity; good physical condition;does not exercise on a regular basis; discussed weightbearing activities Additional Lifestyle Factors:no tobacco use; drinks alcohol (mild-moderate) Depression Risk:never feels sad, empty, or tearful; no loss of interest in activities; no significant changes in weight; no sleep disturbances or insomnia; no agitation; no loss of energy; no feelings of worthlessness or guilt; no thoughts of suicide; no history of depression; no history of mood disorders Hearing:no loss of hearing Vision:no vision problems the patient reports that when he walks he waddleswith patient doesn't notice it, his family brought it upmostly likely spinal in naturedoes have resting tremor of his right hand which has been a termite control servicer thingprobably neuro relateddoesn't affect him and his function no vision changes no falls recentlycognizant of abilities COLEMAN MONTES [address] [place] [address], [place], [address], [facility] 06/15/2024 09:17:42 4 text/html c/o spasms the patient was getting uncontrolled spasms on the right side of his R leg and then his R armthe patient denies any other symptoms with itno pain, no numbness or tinglingdenies chest pain, sob, fever, chills the patient reports he doesn't drink a lot of water could be def of something in his body vs seizure vs TIA though less likely given lee recovery and back to baseline, no mental status change and otherwise normal health COLEMAN MONTES [address] [facility], [place], [address], [facility] 07/14/2024 15:08:54 4 text/html Medicare Annual Wellness VisitReported bypatient.Diet and Nutrition:healthy diet Fracture Risk:no history of fractures; no recent explained fracture; no sudden unexplained fractures; no previous musculoskeletal injuries Physical Activity:exercises on a regular basis; recent increase in physical activity; good physical condition Depression Risk:never feels sad, empty, or tearful; no loss of interest in activities; no significant changes in weight; no sleep disturbances or insomnia; no agitation; no loss of energy; no feelings of worthlessness or guilt; no thoughts of suicide; no history of depression; no history of mood disorders Orientation:no disorientation to time; no disorientation to date; no disorientation to place Concentration and Memory:no decreased concentrating ability; no memory lapses or loss; does not forget words Speech/Motor difficulties:no speech difficulties; no difficulty expressing formulated concepts; no difficulty with fine manipulative tasks; no difficulty writing/copying; no slowed reaction time; does not knock things over when trying to pick them up Hearing:no loss of hearing Vision:no vision problems Activities of Daily Living:able to bathe with limited or no assistance; able to contol urination and bowels; able to dress with limited or no assistance; able to feed self with limited or no assistance; able to get out of chair or bed with limited or no assistance; able to groom with limited or no assistance; able to toilet with limited or no assistance Instrumental Activities of Daily Living:able to do house work with limited or no assistance; able to grocery shop with limited or no assistance; able to manage medications with limited or no assistance; able to manage money with limited or no assistance; able to prepare meals with limited or no assistance; able to use the phone with limited or no assistance Falls Risk Assessment:no frequent falls while walking; no fall in the past year; no fall since last visit; no dizziness/vertigo Home Safety:no unsafe umu hazzards; no unsafe stairs; no unsafe gas appliances; working smoke/CO detectors; wears protective head gear for biking/high velocity; use of seatbelts; practicing 'safer sex'; no vision or hearing loss while driving; no fire arms; has hand bars in the bathroom/shower; good lighting in the home COLEMAN MONTES [address] [place], [address], [facility] 08/17/2024 11:04:42 5 text/html 3 mos f/u today in the office the patient BP is 132/70 L arm, stable at homethe patient is doing well on the BP medication with no side effects and no adjustment of their medications needed today at the appointmentwell-contro lled on medicationdenies chest pain, sob, ankle swelling, orthopnea, palpitations iron def: labs wnl, recommended holding medication due to constipation and rechecking levels to see if it has dropped or stayed stable wanted to see PT for his gait, no pain, doesn't notice himself but his keeps mentioning her waddles, he does tend to shuffle and have wider stance the patient reports that he is doing well otherwise COLEMAN MONTES [address] [place], [address], [facility] 10/06/2024 11:51:50 5 text/html 1 mos f/u BW showed normal iron levelRBC levels have improved as wellpatient feels much betterdenies any sob, fever, chills, headaches, blurred vision, chest pain recommended f/u in 3 mos for routine f/u bw now that his levels have normalizedpatient agrees, will continue on supplement has question about nails, ridges probably due to the anemia, but he also has a fungal infection recommended starting topical, apply once daily for at least 1 to 2 mos COLEMAN MONTES [address] [place], [address], [facility] 11/10/2024 10:45:42
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
[2025-01-26 17:51] LABS: MANUAL DIFF FLAG NO
[2025-01-26 18:08] LABS: Basophils Absolute Auto 0.1 X10*3/uL (0.0-0.2); Basophils Percent Auto 0.6 % (0-2); Eosinophils Absolute Auto 0.3 X10*3/uL (0.0-0.4); Eosinophils Percent Auto 4.1 % (0-4); Hematocrit 37.3 % (42.0-52.0); Imm Gran Abs Auto 0.03 X10*3/uL (0.00-0.03); Imm Gran Pct Auto 0.4 % (0.0-0.4); Lymphocytes Absolute Auto 1.2 X10*3/uL (1.2-4.9); Lymphocytes Percent Auto 15.3 % (20-40); Mean Corpuscular HGB Conc 32.2 g/dl (31.0-36.0); Mean Corpuscular Hemoglobin 31.5 pg (27.0-33.0); Mean Corpuscular Volume 97.9 fL (80.0-98.0); Monocytes Absolute Auto 0.9 X10*3/uL (0.1-1.2); Monocytes Percent Auto 11.5 % (2-11); Neutrophils Absolute Auto 5.3 x10*3/uL (2.0-8.3); Neutrophils Percent Auto 68.1 % (45-73); Platelet Count 208 X10*3/uL (160-400); Red Blood Count 3.81 X10*6/uL (4.60-5.80); Red Cell Distribution Width 12.4 % (11.0-16.0); White Blood Count 7.8 X10*3/uL (4.8-10.8)
[2025-01-26 18:44] LABS: Alanine Aminotransferase 12 U/L (0-40); Albumin Level 3.7 g/dL (3.5-5.0); Alkaline Phosphatase 89 U/L (39-117); Anion Gap 14 (12-20); Aspartate Amino Transferase 23 U/L (5-37); Bilirubin Total 0.7 mg/dL (0.0-1.0); Blood Urea Nitrogen 14 mg/dL (9-16); Calcium 9.4 mg/dL (8.4-10.2); Carbon Dioxide 25 mmol/L (22-29); Chloride 108 mmol/L (96-108); Estimated Glomerular Filt Rate > 60; Glucose Random 77 mg/dL (60-115); Iron 34 mcg/dL (45-160); Percent Iron Saturation 13 % (15-50); Potassium 4.2 mmol/L (3.3-5.1); Sodium 143 mmol/L (135-145); Total Iron Binding Capacity 253 mcg/dL (228-428); Total Protein 6.8 g/dL (6.5-8.0); Unsaturated Iron Binding 219 ug/dL
== END 2025-01-26 14:03 | disposition home or self-care (01) ==
LOC: HO.MANLDS 14:02
PROVIDERS: Visit Provider Physician Assistant
DX: D50.8 Other iron deficiency anemias (principal); I10 Essential (primary) hypertension
CPT/HCPCS: 36415; 80053; 83540; 85025